=== PATIENT | male | born 1980 | race Caucasian/White ===

== ENCOUNTER 2020-04-23 10:26 | Inpatient (IN) | payer MEDICAID, SELFPAY ==
[~2020-04-23] VITALS: Ht 180.3 cm; Wt 106.6 kg
[~2020-04-23 10:26] MED LIST: ALBU0.0912 INH; AMPH15TA PO; AZIT250T3 PO; BENZ-196 PO; BUS5 PO; DEC1 PO; DESV50TE PO; FERR325E14 PO; LORA-476 PO; QUET100T PO
[2020-04-23] MEDS ORDERED: LORazepam 2 MG/ML VIAL IVP ONE (10:40)
[2020-04-23 10:43] VITALS: BP 135/93
[2020-04-23] MEDS ORDERED: DEXAMETHASONE 10 MG/ML VIAL IVP ONE (14:20)
[2020-04-23 15:17] LABS: BASOPHILS % (AUTO) 0.1 % (0.0-2.0); EOSINOPHILS # (AUTO) 0.1 K/uL (0-0.4); EOSINOPHILS % (AUTO) 0.6 % (0.0-4.0); HEMOGLOBIN 12.6 g/dL (12.0-18.0); LYMPHOCYTES # (AUTO) 0.8 K/uL (2.0-11.5); LYMPHOCYTES % (AUTO) 4.9 % (20.5-51.1); MEAN CORPUSCULAR HEMOGLOBIN 24 pg (27-31); MEAN CORPUSCULAR HGB CONC 32 g/dL (33-37); MEAN CORPUSCULAR VOLUME 73.3 fL (80-94); MONOCYTES # (AUTO) 0.5 K/uL (0.8-1.0); MONOCYTES % (AUTO) 2.9 % (1.7-9.3); NEUTROPHILS # (AUTO) 14.6 K/uL (1.8-7.7); NEUTROPHILS % (AUTO) 91.5 % (42.2-75.2); PLATELET COUNT (AUTO) 385 K/uL (140-450); RED BLOOD CELL COUNT(AUTO) 5.32 MIL/uL (4.20-6.10); RED CELL DISTRIBUTION WIDTH 22.2 % (11.6-13.7)
[2020-04-23] MEDS ORDERED: ALBUTEROL HFA MDI 90 MCG/ACTUATION 8 GM INH PRN (15:25)
[2020-04-23] MEDS ORDERED: LEVOFLOXACIN 500 MG/D5W PREMIX 100 ML IV SCH (15:25)
[2020-04-23] MEDS ORDERED: ZOLPIDEM 5 MG TAB PO PRN (15:25)
[2020-04-23] MEDS ORDERED: COMMUNICATION ORDER MC SCH (15:25)
[2020-04-23] MEDS ORDERED: ONDANSETRON 4 MG/2 ML VIAL IM/IVP PRN (15:25)
[2020-04-23] MEDS ORDERED: DOCUSATE SODIUM 100 MG GELCAP PO PRN (15:25)
[2020-04-23] MEDS ORDERED: POTASSIUM CHLORIDE 10 MEQ TABER PO PRN (15:25)
[2020-04-23 15:35] LABS: ALBUMIN 2.4 g/dL (3.4-5.0); ANION GAP 12.5 (8-16); CARBON DIOXIDE 28.8 mmol/L (21-32); POTASSIUM 4.3 mmol/L (3.5-5.1); TOTAL BILIRUBIN 0.5 mg/dL (0.0-1.0)
[2020-04-23 16:14] LABS: PROTHROMBIN TIME 10.5 secs (10.8-13.4)
[2020-04-23] MEDS ORDERED: remdesivir CLINICAL MONITORING 1 EA MISC MC PRN (16:15)
[2020-04-23] MEDS: NACL 0.9% 1,000 ML IV SCH (16:20)
[2020-04-23 16:43] LABS: FREE T4 (FREE THYROXINE) 1.13 ng/dL (0.76-1.46); MAGNESIUM 2.1 mg/dL (1.8-2.4); THYROID STIMULATING HORMONE 0.7 uIU/mL (0.34-3.74)
[2020-04-23] MEDS: REMDESIVIR (EUA) 100 MG in NACL 0.9% 100 ML IV SCH (17:07)
[2020-04-23 17:20] LABS: APPEARANCE,URINE CLEAR (CLEAR); BILIRUBIN,URINE NEGATIVE (NEGATIVE); BLOOD, URINE NEGATIVE (NEGATIVE); COLOR,URINE YELLOW (YELLOW); LEUKOCYTE ESTERASE ,URINE NEGATIVE (NEGATIVE); NITRITE, URINE NEGATIVE (NEGATIVE); UGLUCOSE NEGATIVE (NEGATIVE)
[2020-04-23] MEDS: HYDROcodone/APAP 7.5/325 MG 1 TAB PO PRN (18:16)
[2020-04-23] MEDS: LEVOFLOXACIN 750 MG/D5W PREMIX 150 ML IV SCH (18:26)
[2020-04-23 18:34] LABS: BARBITURATE, URINE NEGATIVE ng/ml (NEG <=200); BENZODIAZEPINE, URINE POSITIVE ng/mL (NEG <=200); CANNABINOID, URINE POSITIVE ng/mL (NEG <=50); COCAINE, URINE NEGATIVE ng/mL (NEG <=300); OPIATE, URINE NEGATIVE ng/mL (NEG <=2000); PHENCYCLIDINE SCREEN,URINE NEGATIVE ng/mL (NEG <=25)
[2020-04-23] MEDS ORDERED: LORazepam 2 MG/ML VIAL ONE (20:10)
[2020-04-23] MEDS: LORazepam 2 MG/ML VIAL IVP PRN (20:31)
[2020-04-23] MEDS: methylPREDNISolone SS 40 MG/ML VIAL IVP SCH (21:11)
[2020-04-24] MEDS: LORazepam 2 MG/ML VIAL IVP PRN ×5 (04:38→21:41)
[2020-04-24 07:12] LABS: T4 (THYROXINE) 5.9 ug/dL (4.5-12.0)
[2020-04-24] MEDS: NACL 0.9% 1,000 ML IV SCH (08:26)
[2020-04-24 08:34] LABS: BASOPHILS % (AUTO) 0.1 % (0.0-2.0); HEMATOCRIT 36.4 % (36-52); HEMOGLOBIN 11.6 g/dL (12.0-18.0); LYMPHOCYTES # (AUTO) 0.4 K/uL (2.0-11.5); LYMPHOCYTES % (AUTO) 2.6 % (20.5-51.1); MEAN CORPUSCULAR HEMOGLOBIN 24 pg (27-31); MEAN CORPUSCULAR HGB CONC 32 g/dL (33-37); MEAN CORPUSCULAR VOLUME 73.6 fL (80-94); MONOCYTES # (AUTO) 0.5 K/uL (0.8-1.0); MONOCYTES % (AUTO) 3.2 % (1.7-9.3); NEUTROPHILS # (AUTO) 14.5 K/uL (1.8-7.7); NEUTROPHILS % (AUTO) 94.1 % (42.2-75.2); PLATELET COUNT (AUTO) 380 K/uL (140-450); RED BLOOD CELL COUNT(AUTO) 4.94 MIL/uL (4.20-6.10); RED CELL DISTRIBUTION WIDTH 22.1 % (11.6-13.7); WHITE BLOOD COUNT (AUTO) 15.4 K/uL (4.8-10.8)
[2020-04-24] MEDS ORDERED: AZITHROMYCIN 250 MG TAB ONE (08:57)
[2020-04-24 09:06] LABS: ALBUMIN 2.3 g/dL (3.4-5.0); ANION GAP 15.2 (8-16); CARBON DIOXIDE 27.8 mmol/L (21-32); CREATININE 0.9 mg/dL (0.6-1.3); TOTAL BILIRUBIN 0.3 mg/dL (0.0-1.0)
[2020-04-24] MEDS: methylPREDNISolone SS 40 MG/ML VIAL IVP SCH ×2 (09:12→21:39)
[2020-04-24] MEDS: PANTOPRAZOLE 40 MG TABEC PO SCH (09:12)
[2020-04-24] MEDS: ASCORBIC ACID 500 MG TAB PO SCH (09:13)
[2020-04-24] MEDS: AZITHROMYCIN 250 MG TAB PO SCH (09:13)
[2020-04-24] MEDS ORDERED: HYDROcodone/APAP 7.5/325 MG 1 TAB ONE (11:35)
[2020-04-24] MEDS: HYDROcodone/APAP 7.5/325 MG 1 TAB PO PRN (11:37)
[2020-04-24] MEDS: guaiFENesin DM 200/20 MG-10 ML 10 ML UDC PO PRN ×2 (13:08→19:14)
[2020-04-24] MEDS: MORPHINE SULFATE 4 MG/ML SYR IVP PRN ×3 (15:10→23:24)
[2020-04-24] MEDS: REMDESIVIR (EUA) 100 MG in NACL 0.9% 100 ML IV SCH (17:05)
[2020-04-24] MEDS: LEVOFLOXACIN 750 MG/D5W PREMIX 150 ML IV SCH (18:12)
[2020-04-24] MEDS: LOVENOX 1MG/KG Q12H SUBQ SCH (21:00)
[2020-04-24] MEDS: ENOXAPARIN 120 MG/0.8 ML SYR SUBQ SCH (21:40)
[2020-04-25] MEDS: NACL 0.9% 1,000 ML IV SCH ×2 (00:45→17:25)
[2020-04-25] MEDS: LORazepam 2 MG/ML VIAL IVP PRN ×3 (03:45→16:17)
[2020-04-25] MEDS: MORPHINE SULFATE 4 MG/ML SYR IVP PRN ×5 (04:06→22:11)
[2020-04-25 08:00] VITALS: BP 98/62
[2020-04-25] MEDS: LOVENOX 1MG/KG Q12H SUBQ SCH ×2 (09:00→20:30)
[2020-04-25] MEDS: ASCORBIC ACID 500 MG TAB PO SCH (09:03)
[2020-04-25] MEDS: PANTOPRAZOLE 40 MG TABEC PO SCH (09:03)
[2020-04-25] MEDS: AZITHROMYCIN 250 MG TAB PO SCH (09:03)
[2020-04-25] MEDS: methylPREDNISolone SS 40 MG/ML VIAL IVP SCH ×2 (09:04→20:18)
[2020-04-25] MEDS: ENOXAPARIN 120 MG/0.8 ML SYR SUBQ SCH ×2 (09:09→20:29)
[2020-04-25 09:19] LABS: BASOPHILS # (AUTO) 0.1 K/uL (0.00-0.22); BASOPHILS % (AUTO) 0.8 % (0.0-2.0); HEMATOCRIT 39.4 % (36-52); HEMOGLOBIN 12.6 g/dL (12.0-18.0); LYMPHOCYTES # (AUTO) 0.7 K/uL (2.0-11.5); LYMPHOCYTES % (AUTO) 3.6 % (20.5-51.1); MEAN CORPUSCULAR HEMOGLOBIN 24 pg (27-31); MEAN CORPUSCULAR HGB CONC 32 g/dL (33-37); MEAN CORPUSCULAR VOLUME 74.1 fL (80-94); MONOCYTES # (AUTO) 0.6 K/uL (0.8-1.0); MONOCYTES % (AUTO) 3.4 % (1.7-9.3); NEUTROPHILS # (AUTO) 17.3 K/uL (1.8-7.7); NEUTROPHILS % (AUTO) 92.2 % (42.2-75.2); PLATELET COUNT (AUTO) 465 K/uL (140-450); RED BLOOD CELL COUNT(AUTO) 5.31 MIL/uL (4.20-6.10); RED CELL DISTRIBUTION WIDTH 22.5 % (11.6-13.7); WHITE BLOOD COUNT (AUTO) 18.8 K/uL (4.8-10.8)
[2020-04-25 09:48] LABS: ALBUMIN 2.5 g/dL (3.4-5.0); ANION GAP 14.6 (8-16); CARBON DIOXIDE 27.9 mmol/L (21-32); CREATININE 0.9 mg/dL (0.6-1.3); POTASSIUM 4.5 mmol/L (3.5-5.1); TOTAL BILIRUBIN 0.4 mg/dL (0.0-1.0)
[2020-04-25] MEDS: guaiFENesin DM 200/20 MG-10 ML 10 ML UDC PO PRN ×2 (11:46→18:31)
[2020-04-25] MEDS ORDERED: CHLORHEXIDINE GLUCONATE 0.12% 473 ML LIQ MM ONE (12:45)
[2020-04-25 16:00] VITALS: BP 115/67
[2020-04-25] MEDS: REMDESIVIR (EUA) 100 MG in NACL 0.9% 100 ML IV SCH (17:00)
[2020-04-25 20:00] VITALS: BP 114/67
[2020-04-25] MEDS: LEVOFLOXACIN 750 MG/D5W PREMIX 150 ML IV SCH (20:18)
[2020-04-25] MEDS: CHLORHEXIDINE GLUCONATE 0.12% 473 ML LIQ MM SCH (20:18)
[2020-04-25] MEDS ORDERED: CHLORHEXADINE GLUC 2% CLOTH TP SCH (21:00)
[2020-04-25] MEDS ORDERED: cefTRIAXone 2,000 MG VIAL ONE (22:00)
[2020-04-25] MEDS: cefTRIAXone 2,000 MG in DEXTROSE 5% 100 ML IV SCH (22:05)
[2020-04-26] MEDS: LORazepam 2 MG/ML VIAL IVP PRN ×6 (00:17→23:42)
[2020-04-26] MEDS: MORPHINE SULFATE 4 MG/ML SYR IVP PRN ×5 (02:11→21:20)
[2020-04-26] MEDS: guaiFENesin DM 200/20 MG-10 ML 10 ML UDC PO PRN ×3 (02:21→21:00)
[2020-04-26 04:00] VITALS: BP 101/75
[2020-04-26] MEDS: ENOXAPARIN 120 MG/0.8 ML SYR SUBQ SCH ×2 (08:06→19:56)
[2020-04-26] MEDS: LOVENOX 1MG/KG Q12H SUBQ SCH ×2 (08:10→09:00)
[2020-04-26] MEDS: CHLORHEXIDINE GLUCONATE 0.12% 473 ML LIQ MM SCH ×2 (08:11→21:30)
[2020-04-26] MEDS: AZITHROMYCIN 250 MG TAB PO SCH (08:12)
[2020-04-26] MEDS: methylPREDNISolone SS 40 MG/ML VIAL IVP SCH ×2 (08:12→19:53)
[2020-04-26] MEDS: PANTOPRAZOLE 40 MG TABEC PO SCH (08:12)
[2020-04-26] MEDS: ASCORBIC ACID 500 MG TAB PO SCH (08:13)
[2020-04-26 08:29] LABS: ALBUMIN 2.2 g/dL (3.4-5.0); ANION GAP 12.4 (8-16); CARBON DIOXIDE 29.6 mmol/L (21-32); CREATININE 0.9 mg/dL (0.6-1.3); TOTAL BILIRUBIN 0.3 mg/dL (0.0-1.0)
[2020-04-26] MEDS: NACL 0.9% 1,000 ML IV SCH (10:05)
[2020-04-26 12:10] LABS: BASOPHILS % (AUTO) 0.3 % (0.0-2.0); HEMATOCRIT 37.3 % (36-52); HEMOGLOBIN 11.8 g/dL (12.0-18.0); LYMPHOCYTES # (AUTO) 0.6 K/uL (2.0-11.5); LYMPHOCYTES % (AUTO) 3.6 % (20.5-51.1); MEAN CORPUSCULAR HEMOGLOBIN 24 pg (27-31); MEAN CORPUSCULAR HGB CONC 32 g/dL (33-37); MEAN CORPUSCULAR VOLUME 75.5 fL (80-94); MONOCYTES # (AUTO) 0.7 K/uL (0.8-1.0); MONOCYTES % (AUTO) 4.5 % (1.7-9.3); NEUTROPHILS # (AUTO) 14.3 K/uL (1.8-7.7); NEUTROPHILS % (AUTO) 91.6 % (42.2-75.2); PLATELET COUNT (AUTO) 432 K/uL (140-450); RED BLOOD CELL COUNT(AUTO) 4.94 MIL/uL (4.20-6.10); RED CELL DISTRIBUTION WIDTH 21.8 % (11.6-13.7); WHITE BLOOD COUNT (AUTO) 15.6 K/uL (4.8-10.8)
[2020-04-26 16:00] VITALS: BP 103/70
[2020-04-26] MEDS: LEVOFLOXACIN 750 MG/D5W PREMIX 150 ML IV SCH (17:14)
[2020-04-26] MEDS: cefTRIAXone 2,000 MG in DEXTROSE 5% 100 ML IV SCH (19:54)
[2020-04-26 20:00] VITALS: BP 118/71
[2020-04-27] MEDS: MORPHINE SULFATE 4 MG/ML SYR IVP PRN ×5 (01:22→19:59)
[2020-04-27] MEDS: NACL 0.9% 1,000 ML IV SCH ×2 (02:45→20:00)
[2020-04-27] MEDS: guaiFENesin DM 200/20 MG-10 ML 10 ML UDC PO PRN ×4 (02:58→22:39)
[2020-04-27] MEDS: LORazepam 2 MG/ML VIAL IVP PRN ×5 (03:43→21:41)
[2020-04-27 04:00] VITALS: BP 97/62
[2020-04-27 08:00] VITALS: BP 136/74
[2020-04-27] MEDS: ENOXAPARIN 120 MG/0.8 ML SYR SUBQ SCH ×2 (09:31→21:32)
[2020-04-27] MEDS: PANTOPRAZOLE 40 MG TABEC PO SCH (09:33)
[2020-04-27] MEDS: AZITHROMYCIN 250 MG TAB PO SCH (09:33)
[2020-04-27] MEDS: ASCORBIC ACID 500 MG TAB PO SCH (09:33)
[2020-04-27] MEDS: methylPREDNISolone SS 40 MG/ML VIAL IVP SCH ×2 (09:35→21:31)
[2020-04-27] MEDS: CHLORHEXIDINE GLUCONATE 0.12% 473 ML LIQ MM SCH ×2 (09:36→21:41)
[2020-04-27] MEDS: ALBUTEROL HFA MDI 90 MCG/ACTUATION 8 GM INH PRN (13:09)
[2020-04-27] MEDS: CLINDAMYCIN 600 MG in DEXTROSE 5% 50 ML IV SCH ×2 (14:05→21:25)
[2020-04-27 16:00] VITALS: BP 109/75
[2020-04-27 19:57] VITALS: BP 116/70
[2020-04-27] MEDS: cefTRIAXone 2,000 MG in DEXTROSE 5% 100 ML IV SCH (22:29)
[2020-04-28] MEDS: MORPHINE SULFATE 4 MG/ML SYR IVP PRN ×6 (04:00→22:10)
[2020-04-28 04:08] VITALS: BP 103/69
[2020-04-28] MEDS: CLINDAMYCIN 600 MG in DEXTROSE 5% 50 ML IV SCH ×3 (06:08→21:00)
[2020-04-28 08:00] VITALS: BP 117/63
[2020-04-28] MEDS: methylPREDNISolone SS 40 MG/ML VIAL IVP SCH ×2 (08:28→21:00)
[2020-04-28] MEDS: ASCORBIC ACID 500 MG TAB PO SCH (08:29)
[2020-04-28] MEDS: PANTOPRAZOLE 40 MG TABEC PO SCH (08:29)
[2020-04-28] MEDS: ENOXAPARIN 120 MG/0.8 ML SYR SUBQ SCH ×2 (08:30→21:00)
[2020-04-28] MEDS: CHLORHEXIDINE GLUCONATE 0.12% 473 ML LIQ MM SCH ×2 (08:32→21:00)
[2020-04-28] MEDS: LORazepam 2 MG/ML VIAL IVP PRN ×2 (10:20→14:22)
[2020-04-28] MEDS: guaiFENesin DM 200/20 MG-10 ML 10 ML UDC PO PRN (12:34)
[2020-04-28] MEDS: NACL 0.9% 1,000 ML IV SCH (15:36)
[2020-04-28 16:00] VITALS: BP 99/76
[2020-04-28] MEDS: cefTRIAXone 2,000 MG in DEXTROSE 5% 100 ML IV SCH (21:00)
[2020-04-28] MEDS ORDERED: ALBUTEROL HFA MDI 90 MCG/ACTUATION 8 GM INH PRN (21:45)
[2020-04-29] MEDS: MORPHINE SULFATE 4 MG/ML SYR IVP PRN ×5 (02:19→21:29)
[2020-04-29] MEDS: LORazepam 2 MG/ML VIAL IVP PRN ×4 (03:40→23:53)
[2020-04-29 04:00] VITALS: BP_SYST 104; BP_SYST 160; BP_DIAS 65; BP_DIAS 70
[2020-04-29] MEDS: NACL 0.9% 1,000 ML IV SCH ×2 (04:45→21:25)
[2020-04-29] MEDS: CLINDAMYCIN 600 MG in DEXTROSE 5% 50 ML IV SCH ×3 (05:18→20:18)
[2020-04-29 08:00] VITALS: BP 112/76
[2020-04-29 08:23] LABS: BASOPHILS % (AUTO) 0.2 % (0.0-2.0); EOSINOPHILS % (AUTO) 0.3 % (0.0-4.0); HEMATOCRIT 37.7 % (36-52); LYMPHOCYTES # (AUTO) 0.8 K/uL (2.0-11.5); LYMPHOCYTES % (AUTO) 6.3 % (20.5-51.1); MEAN CORPUSCULAR HEMOGLOBIN 24 pg (27-31); MEAN CORPUSCULAR HGB CONC 32 g/dL (33-37); MEAN CORPUSCULAR VOLUME 74.7 fL (80-94); MONOCYTES # (AUTO) 0.8 K/uL (0.8-1.0); MONOCYTES % (AUTO) 5.8 % (1.7-9.3); NEUTROPHILS # (AUTO) 11.7 K/uL (1.8-7.7); NEUTROPHILS % (AUTO) 87.4 % (42.2-75.2); PLATELET COUNT (AUTO) 363 K/uL (140-450); RED BLOOD CELL COUNT(AUTO) 5.04 MIL/uL (4.20-6.10); RED CELL DISTRIBUTION WIDTH 21.5 % (11.6-13.7); WHITE BLOOD COUNT (AUTO) 13.4 K/uL (4.8-10.8)
[2020-04-29] MEDS ORDERED: ASCORBIC ACID 500 MG TAB PO SCH (09:00)
[2020-04-29 09:02] LABS: ALBUMIN 2.3 g/dL (3.4-5.0); CARBON DIOXIDE 28.7 mmol/L (21-32); CREATININE 0.8 mg/dL (0.6-1.3); MAGNESIUM 1.5 mg/dL (1.8-2.4); PHOSPHORUS 3.1 mg/dL (2.5-4.9); TOTAL BILIRUBIN 0.3 mg/dL (0.0-1.0)
[2020-04-29 09:24] LABS: POTASSIUM 3.7 mmol/L (3.5-5.1)
[2020-04-29] MEDS: ASCORBIC ACID 500 MG TAB PO SCH (10:41)
[2020-04-29] MEDS: PANTOPRAZOLE 40 MG TABEC PO SCH (10:42)
[2020-04-29] MEDS: VITAMIN D 400 IU TAB PO SCH (10:42)
[2020-04-29] MEDS: methylPREDNISolone SS 40 MG/ML VIAL IVP SCH ×2 (10:44→20:21)
[2020-04-29] MEDS: ENOXAPARIN 120 MG/0.8 ML SYR SUBQ SCH ×2 (10:52→20:27)
[2020-04-29] MEDS: guaiFENesin DM 200/20 MG-10 ML 10 ML UDC PO PRN ×2 (11:16→22:19)
[2020-04-29] MEDS: CHLORHEXIDINE GLUCONATE 0.12% 473 ML LIQ MM SCH (11:17)
[2020-04-29 16:00] VITALS: BP 136/96
[2020-04-29] MEDS ORDERED: MAG SULF 2000 MG/WATER PREMIX 50 ML IV SCH (16:00)
[2020-04-29 20:00] VITALS: BP 123/87
[2020-04-29] MEDS: cefTRIAXone 2,000 MG in DEXTROSE 5% 100 ML IV SCH (21:35)
[2020-04-30] MEDS: MORPHINE SULFATE 4 MG/ML SYR IVP PRN (01:41)
[2020-04-30] MEDS: CLINDAMYCIN 600 MG in DEXTROSE 5% 50 ML IV SCH ×3 (04:12→20:57)
[2020-04-30] MEDS: LORazepam 2 MG/ML VIAL IVP PRN ×4 (04:33→17:53)
[2020-04-30 06:10] VITALS: BP 131/78
[2020-04-30] MEDS: NACL 0.9% 1,000 ML IV SCH (06:25)
[2020-04-30 08:00] VITALS: BP 126/86
[2020-04-30] MEDS: VITAMIN D 400 IU TAB PO SCH (08:48)
[2020-04-30] MEDS: PANTOPRAZOLE 40 MG TABEC PO SCH (08:48)
[2020-04-30] MEDS: ASCORBIC ACID 500 MG TAB PO SCH (08:48)
[2020-04-30] MEDS: methylPREDNISolone SS 40 MG/ML VIAL IVP SCH ×2 (08:49→20:57)
[2020-04-30] MEDS: ENOXAPARIN 120 MG/0.8 ML SYR SUBQ SCH ×2 (08:51→21:00)
[2020-04-30 09:41] LABS: ALBUMIN 2.7 g/dL (3.4-5.0); ANION GAP 15.4 (8-16); CARBON DIOXIDE 27.5 mmol/L (21-32); CREATININE 0.9 mg/dL (0.6-1.3); MAGNESIUM 2.5 mg/dL (1.8-2.4); POTASSIUM 3.9 mmol/L (3.5-5.1); TOTAL BILIRUBIN 0.4 mg/dL (0.0-1.0)
[2020-04-30 16:00] VITALS: BP 120/78
[2020-04-30 20:00] VITALS: BP 118/75
[2020-04-30] MEDS: HYDROcodone/APAP 7.5/325 MG 1 TAB PO PRN (20:58)
[2020-04-30] MEDS: cefTRIAXone 2,000 MG in DEXTROSE 5% 100 ML IV SCH (21:01)
[2020-05-01] MEDS: LORazepam 2 MG/ML VIAL IVP PRN ×2 (00:07→05:32)
[2020-05-01 04:00] VITALS: BP 99/64
[2020-05-01] MEDS: CLINDAMYCIN 600 MG in DEXTROSE 5% 50 ML IV SCH ×3 (05:12→21:30)
[2020-05-01] MEDS: NACL 0.9% 1,000 ML IV SCH ×2 (06:45→14:04)
[2020-05-01 08:00] VITALS: BP 106/64
[2020-05-01 08:46] LABS: BASOPHILS % (AUTO) 0.3 % (0.0-2.0); EOSINOPHILS % (AUTO) 0.1 % (0.0-4.0); HEMATOCRIT 37.8 % (36-52); HEMOGLOBIN 12.2 g/dL (12.0-18.0); LYMPHOCYTES % (AUTO) 7.3 % (20.5-51.1); MEAN CORPUSCULAR HEMOGLOBIN 24 pg (27-31); MEAN CORPUSCULAR HGB CONC 32 g/dL (33-37); MEAN CORPUSCULAR VOLUME 74.6 fL (80-94); MONOCYTES # (AUTO) 0.8 K/uL (0.8-1.0); MONOCYTES % (AUTO) 5.3 % (1.7-9.3); NEUTROPHILS # (AUTO) 12.5 K/uL (1.8-7.7); PLATELET COUNT (AUTO) 416 K/uL (140-450); RED BLOOD CELL COUNT(AUTO) 5.06 MIL/uL (4.20-6.10); RED CELL DISTRIBUTION WIDTH 21.1 % (11.6-13.7); WHITE BLOOD COUNT (AUTO) 14.4 K/uL (4.8-10.8)
[2020-05-01 08:54] LABS: ALBUMIN 2.6 g/dL (3.4-5.0); ANION GAP 15.2 (8-16); CARBON DIOXIDE 26.6 mmol/L (21-32); MAGNESIUM 1.8 mg/dL (1.8-2.4); PHOSPHORUS 4.1 mg/dL (2.5-4.9); POTASSIUM 3.8 mmol/L (3.5-5.1); TOTAL BILIRUBIN 0.4 mg/dL (0.0-1.0)
[2020-05-01] MEDS: methylPREDNISolone SS 40 MG/ML VIAL IVP SCH ×2 (10:50→21:30)
[2020-05-01] MEDS: VITAMIN D 400 IU TAB PO SCH (10:50)
[2020-05-01] MEDS: ASCORBIC ACID 500 MG TAB PO SCH (10:50)
[2020-05-01] MEDS: PANTOPRAZOLE 40 MG TABEC PO SCH (10:51)
[2020-05-01] MEDS: ENOXAPARIN 120 MG/0.8 ML SYR SUBQ SCH ×2 (10:53→21:32)
[2020-05-01] MEDS ORDERED: LORazepam 2 MG/ML VIAL IVP PRN (11:15)
[2020-05-01] MEDS ORDERED: HYDROcodone/APAP 7.5/325 MG 1 TAB ONE (11:51)
[2020-05-01 16:00] VITALS: BP 103/66
[2020-05-01] MEDS ORDERED: KETOROLAC 30 MG/ML VIAL IM SCH (17:00)
[2020-05-01] MEDS ORDERED: LIDOCAINE MPF 1% 5 ML ONE (17:57)
[2020-05-01] MEDS: ESCITALOPRAM 20 MG TAB PO SCH (18:19)
[2020-05-01] MEDS: HYDROcodone/APAP 7.5/325 MG 1 TAB PO PRN (18:19)
[2020-05-01 20:00] VITALS: BP 139/96
[2020-05-01] MEDS: cefTRIAXone 2,000 MG in DEXTROSE 5% 100 ML IV SCH (21:27)
[2020-05-01] MEDS: LORazepam 2 MG/ML VIAL IM/IVP PRN (21:29)
[2020-05-01] MEDS: HYDROcodone/APAP 10/325 MG 1 TAB TAB PO PRN (23:10)
[2020-05-02] VITALS: BP 110/78
[2020-05-02] MEDS: LORazepam 2 MG/ML VIAL IM/IVP PRN ×4 (03:46→22:57)
[2020-05-02 04:00] VITALS: BP 102/70
[2020-05-02] MEDS: CLINDAMYCIN 600 MG in DEXTROSE 5% 50 ML IV SCH ×3 (05:42→20:26)
[2020-05-02] MEDS: HYDROcodone/APAP 7.5/325 MG 1 TAB PO PRN (05:42)
[2020-05-02 08:00] VITALS: BP 128/89
[2020-05-02 08:44] LABS: BASOPHILS % (AUTO) 0.3 % (0.0-2.0); EOSINOPHILS % (AUTO) 0.1 % (0.0-4.0); LYMPHOCYTES # (AUTO) 0.8 K/uL (2.0-11.5); LYMPHOCYTES % (AUTO) 6.9 % (20.5-51.1); MEAN CORPUSCULAR HEMOGLOBIN 24 pg (27-31); MEAN CORPUSCULAR HGB CONC 32 g/dL (33-37); MEAN CORPUSCULAR VOLUME 75.5 fL (80-94); MONOCYTES # (AUTO) 0.6 K/uL (0.8-1.0); MONOCYTES % (AUTO) 5.2 % (1.7-9.3); NEUTROPHILS # (AUTO) 10.5 K/uL (1.8-7.7); NEUTROPHILS % (AUTO) 87.5 % (42.2-75.2); PLATELET COUNT (AUTO) 384 K/uL (140-450); RED BLOOD CELL COUNT(AUTO) 5.03 MIL/uL (4.20-6.10); RED CELL DISTRIBUTION WIDTH 20.7 % (11.6-13.7)
[2020-05-02 09:29] LABS: ALBUMIN 2.8 g/dL (3.4-5.0); ANION GAP 10.7 (8-16); CARBON DIOXIDE 28.3 mmol/L (21-32); CREATININE 0.9 mg/dL (0.6-1.3); MAGNESIUM 2.4 mg/dL (1.8-2.4); PHOSPHORUS 4.5 mg/dL (2.5-4.9); TOTAL BILIRUBIN 0.3 mg/dL (0.0-1.0)
[2020-05-02] MEDS: methylPREDNISolone SS 40 MG/ML VIAL IVP SCH ×2 (09:46→20:25)
[2020-05-02] MEDS: PANTOPRAZOLE 40 MG TABEC PO SCH (09:47)
[2020-05-02] MEDS: VITAMIN D 400 IU TAB PO SCH (09:47)
[2020-05-02] MEDS: ASCORBIC ACID 500 MG TAB PO SCH (09:47)
[2020-05-02] MEDS: ENOXAPARIN 120 MG/0.8 ML SYR SUBQ SCH ×2 (09:58→20:29)
[2020-05-02] MEDS: HYDROcodone/APAP 10/325 MG 1 TAB TAB PO PRN ×2 (11:57→18:21)
[2020-05-02 12:00] VITALS: BP 128/89
[2020-05-02] MEDS: NACL 0.9% 1,000 ML IV SCH (15:12)
[2020-05-02] MEDS: ESCITALOPRAM 20 MG TAB PO SCH (16:16)
[2020-05-02 20:00] VITALS: BP 121/80
[2020-05-02] MEDS: busPIRone 5 MG TAB PO SCH (20:24)
[2020-05-02] MEDS: guaiFENesin DM 200/20 MG-10 ML 10 ML UDC PO PRN (20:25)
[2020-05-02] MEDS: cefTRIAXone 2,000 MG in DEXTROSE 5% 100 ML IV SCH (20:26)
[2020-05-03] MEDS: HYDROcodone/APAP 10/325 MG 1 TAB TAB PO PRN ×3 (02:28→18:29)
[2020-05-03 04:00] VITALS: BP 111/93
[2020-05-03] MEDS: CLINDAMYCIN 600 MG in DEXTROSE 5% 50 ML IV SCH ×3 (04:35→21:25)
[2020-05-03] MEDS: NACL 0.9% 1,000 ML IV SCH ×2 (04:35→21:43)
[2020-05-03] MEDS: LORazepam 2 MG/ML VIAL IM/IVP PRN ×4 (04:43→23:20)
[2020-05-03 08:00] VITALS: BP 125/74
[2020-05-03] MEDS: busPIRone 5 MG TAB PO SCH ×2 (09:04→21:25)
[2020-05-03] MEDS: ENOXAPARIN 120 MG/0.8 ML SYR SUBQ SCH ×2 (09:04→21:30)
[2020-05-03] MEDS: PANTOPRAZOLE 40 MG TABEC PO SCH (09:04)
[2020-05-03] MEDS: ASCORBIC ACID 500 MG TAB PO SCH (09:05)
[2020-05-03] MEDS: VITAMIN D 400 IU TAB PO SCH (09:06)
[2020-05-03] MEDS: methylPREDNISolone SS 40 MG/ML VIAL IVP SCH ×2 (09:06→21:25)
[2020-05-03 10:08] LABS: BASOPHILS % (AUTO) 0.2 % (0.0-2.0); EOSINOPHILS % (AUTO) 0.1 % (0.0-4.0); HEMATOCRIT 35.1 % (36-52); HEMOGLOBIN 11.2 g/dL (12.0-18.0); LYMPHOCYTES # (AUTO) 0.9 K/uL (2.0-11.5); LYMPHOCYTES % (AUTO) 7.9 % (20.5-51.1); MEAN CORPUSCULAR HEMOGLOBIN 24 pg (27-31); MEAN CORPUSCULAR HGB CONC 32 g/dL (33-37); MEAN CORPUSCULAR VOLUME 75.2 fL (80-94); MONOCYTES # (AUTO) 0.7 K/uL (0.8-1.0); MONOCYTES % (AUTO) 5.5 % (1.7-9.3); NEUTROPHILS # (AUTO) 10.3 K/uL (1.8-7.7); NEUTROPHILS % (AUTO) 86.3 % (42.2-75.2); PLATELET COUNT (AUTO) 373 K/uL (140-450); RED BLOOD CELL COUNT(AUTO) 4.68 MIL/uL (4.20-6.10); RED CELL DISTRIBUTION WIDTH 20.6 % (11.6-13.7)
[2020-05-03 10:12] LABS: ALBUMIN 2.5 g/dL (3.4-5.0); ANION GAP 10.5 (8-16); CARBON DIOXIDE 29.4 mmol/L (21-32); CREATININE 0.8 mg/dL (0.6-1.3); MAGNESIUM 1.7 mg/dL (1.8-2.4); PHOSPHORUS 3.6 mg/dL (2.5-4.9); POTASSIUM 3.9 mmol/L (3.5-5.1); TOTAL BILIRUBIN 0.2 mg/dL (0.0-1.0)
[2020-05-03] MEDS: KETOROLAC 30 MG/ML VIAL IVP PRN (12:47)
[2020-05-03] MEDS: guaiFENesin DM 200/20 MG-10 ML 10 ML UDC PO PRN (13:33)
[2020-05-03] MEDS: ESCITALOPRAM 20 MG TAB PO SCH (17:20)
[2020-05-03] MEDS: ALBUTEROL HFA MDI 90 MCG/ACTUATION 8 GM INH PRN (17:51)
[2020-05-03 20:00] VITALS: BP 118/79
[2020-05-03] MEDS: QUEtiapine FUMARATE 25 MG TAB PO SCH (21:25)
[2020-05-04] MEDS: HYDROcodone/APAP 10/325 MG 1 TAB TAB PO PRN ×4 (02:53→23:43)
[2020-05-04 04:00] VITALS: BP 102/69
[2020-05-04] MEDS: LORazepam 2 MG/ML VIAL IM/IVP PRN ×4 (05:52→21:20)
[2020-05-04 08:00] VITALS: BP 112/67
[2020-05-04] MEDS: ENOXAPARIN 120 MG/0.8 ML SYR SUBQ SCH ×2 (09:32→21:18)
[2020-05-04] MEDS: ASCORBIC ACID 500 MG TAB PO SCH (09:34)
[2020-05-04] MEDS: VITAMIN D 400 IU TAB PO SCH (09:35)
[2020-05-04] MEDS: PANTOPRAZOLE 40 MG TABEC PO SCH (09:37)
[2020-05-04] MEDS: QUEtiapine FUMARATE 25 MG TAB PO SCH ×2 (09:37→21:15)
[2020-05-04] MEDS: methylPREDNISolone SS 40 MG/ML VIAL IVP SCH ×2 (09:38→21:16)
[2020-05-04] MEDS: busPIRone 5 MG TAB PO SCH ×2 (09:38→21:13)
[2020-05-04] MEDS: guaiFENesin DM 200/20 MG-10 ML 10 ML UDC PO PRN ×3 (11:11→23:43)
[2020-05-04 16:00] VITALS: BP 115/82
[2020-05-04] MEDS: ESCITALOPRAM 20 MG TAB PO SCH (16:28)
[2020-05-04] MEDS: NACL 0.9% 1,000 ML IV SCH (17:29)
[2020-05-04 20:00] VITALS: BP 128/85
[2020-05-05] MEDS: LORazepam 2 MG/ML VIAL IM/IVP PRN ×6 (02:10→22:35)
[2020-05-05] MEDS: KETOROLAC 30 MG/ML VIAL IVP PRN ×3 (03:53→22:35)
[2020-05-05] MEDS: guaiFENesin DM 200/20 MG-10 ML 10 ML UDC PO PRN ×2 (05:41→12:18)
[2020-05-05] MEDS: HYDROcodone/APAP 10/325 MG 1 TAB TAB PO PRN ×3 (06:12→18:20)
[2020-05-05 08:00] VITALS: BP 125/90
[2020-05-05 09:47] LABS: BASOPHILS % (AUTO) 0.2 % (0.0-2.0); EOSINOPHILS % (AUTO) 0.4 % (0.0-4.0); HEMATOCRIT 33.3 % (36-52); HEMOGLOBIN 10.8 g/dL (12.0-18.0); LYMPHOCYTES # (AUTO) 1.1 K/uL (2.0-11.5); LYMPHOCYTES % (AUTO) 11.5 % (20.5-51.1); MEAN CORPUSCULAR HEMOGLOBIN 24 pg (27-31); MEAN CORPUSCULAR HGB CONC 32 g/dL (33-37); MEAN CORPUSCULAR VOLUME 75.3 fL (80-94); MONOCYTES # (AUTO) 0.4 K/uL (0.8-1.0); MONOCYTES % (AUTO) 4.4 % (1.7-9.3); NEUTROPHILS # (AUTO) 8.3 K/uL (1.8-7.7); NEUTROPHILS % (AUTO) 83.5 % (42.2-75.2); PLATELET COUNT (AUTO) 367 K/uL (140-450); RED BLOOD CELL COUNT(AUTO) 4.43 MIL/uL (4.20-6.10); WHITE BLOOD COUNT (AUTO) 9.9 K/uL (4.8-10.8)
[2020-05-05] MEDS: methylPREDNISolone SS 40 MG/ML VIAL IVP SCH ×2 (10:11→21:59)
[2020-05-05] MEDS: QUEtiapine FUMARATE 25 MG TAB PO SCH ×2 (10:11→21:59)
[2020-05-05] MEDS: ASCORBIC ACID 500 MG TAB PO SCH (10:11)
[2020-05-05] MEDS: PANTOPRAZOLE 40 MG TABEC PO SCH (10:11)
[2020-05-05] MEDS: busPIRone 5 MG TAB PO SCH ×2 (10:12→21:59)
[2020-05-05] MEDS: ENOXAPARIN 120 MG/0.8 ML SYR SUBQ SCH ×2 (10:14→22:01)
[2020-05-05] MEDS: NACL 0.9% 1,000 ML IV SCH ×2 (10:45→16:50)
[2020-05-05 16:00] VITALS: BP 120/60
[2020-05-05] MEDS: ESCITALOPRAM 20 MG TAB PO SCH (16:56)
[2020-05-05 18:06] LABS: ALBUMIN 2.7 g/dL (3.4-5.0); ANION GAP 14.9 (8-16); CARBON DIOXIDE 25.9 mmol/L (21-32); CREATININE 0.8 mg/dL (0.6-1.3); MAGNESIUM 2.3 mg/dL (1.8-2.4); POTASSIUM 3.8 mmol/L (3.5-5.1); TOTAL BILIRUBIN 0.2 mg/dL (0.0-1.0)
[2020-05-05 20:00] VITALS: BP 134/93
[2020-05-06] MEDS: HYDROcodone/APAP 10/325 MG 1 TAB TAB PO PRN ×3 (00:27→15:18)
[2020-05-06] MEDS: LORazepam 2 MG/ML VIAL IM/IVP PRN ×6 (02:55→23:28)
[2020-05-06] MEDS: MORPHINE SULFATE 2 MG/ML SYR IVP PRN ×3 (06:09→18:28)
[2020-05-06 08:00] VITALS: BP 110/71
[2020-05-06 08:54] LABS: BASOPHILS % (AUTO) 0.1 % (0.0-2.0); EOSINOPHILS % (AUTO) 0.2 % (0.0-4.0); HEMOGLOBIN 10.8 g/dL (12.0-18.0); LYMPHOCYTES # (AUTO) 0.9 K/uL (2.0-11.5); LYMPHOCYTES % (AUTO) 6.3 % (20.5-51.1); MEAN CORPUSCULAR HEMOGLOBIN 24 pg (27-31); MEAN CORPUSCULAR HGB CONC 32 g/dL (33-37); MEAN CORPUSCULAR VOLUME 76.3 fL (80-94); MONOCYTES # (AUTO) 0.5 K/uL (0.8-1.0); MONOCYTES % (AUTO) 3.5 % (1.7-9.3); NEUTROPHILS # (AUTO) 12.6 K/uL (1.8-7.7); NEUTROPHILS % (AUTO) 89.9 % (42.2-75.2); PLATELET COUNT (AUTO) 400 K/uL (140-450); RED BLOOD CELL COUNT(AUTO) 4.46 MIL/uL (4.20-6.10); RED CELL DISTRIBUTION WIDTH 20.9 % (11.6-13.7)
[2020-05-06 08:57] LABS: ANION GAP 10.9 (8-16); CARBON DIOXIDE 29.4 mmol/L (21-32); CREATININE 0.8 mg/dL (0.6-1.3); POTASSIUM 4.3 mmol/L (3.5-5.1)
[2020-05-06] MEDS: QUEtiapine FUMARATE 25 MG TAB PO SCH ×2 (09:15→21:17)
[2020-05-06] MEDS: ASCORBIC ACID 500 MG TAB PO SCH (09:15)
[2020-05-06] MEDS: busPIRone 5 MG TAB PO SCH ×2 (09:15→21:16)
[2020-05-06] MEDS: PANTOPRAZOLE 40 MG TABEC PO SCH (09:15)
[2020-05-06] MEDS: guaiFENesin DM 200/20 MG-10 ML 10 ML UDC PO PRN ×3 (09:15→21:19)
[2020-05-06] MEDS: ENOXAPARIN 120 MG/0.8 ML SYR SUBQ SCH ×2 (09:16→21:14)
[2020-05-06] MEDS: methylPREDNISolone SS 40 MG/ML VIAL IVP SCH ×2 (09:16→21:16)
[2020-05-06] MEDS: NACL 0.9% 1,000 ML IV SCH (09:18)
[2020-05-06] MEDS: ALBUTEROL HFA MDI 90 MCG/ACTUATION 8 GM INH PRN (11:18)
[2020-05-06 16:00] VITALS: BP 122/82
[2020-05-06] MEDS: ESCITALOPRAM 20 MG TAB PO SCH (16:22)
[2020-05-06] MEDS: ACETAMINOPHEN 325 MG TAB PO PRN (16:22)
[2020-05-06 20:00] VITALS: BP 128/93
[2020-05-06] MEDS: carisoprodoL 350 MG TAB PO SCH (21:18)
[2020-05-07] MEDS: MORPHINE SULFATE 2 MG/ML SYR IVP PRN ×4 (00:40→20:10)
[2020-05-07] MEDS: guaiFENesin DM 200/20 MG-10 ML 10 ML UDC PO PRN ×4 (03:55→23:01)
[2020-05-07] MEDS: LORazepam 2 MG/ML VIAL IM/IVP PRN ×5 (03:55→23:02)
[2020-05-07] MEDS: HYDROcodone/APAP 10/325 MG 1 TAB TAB PO PRN ×4 (03:55→23:01)
[2020-05-07 04:00] VITALS: BP 130/96
[2020-05-07 08:08] LABS: BASOPHILS # (AUTO) 0.1 K/uL (0.00-0.22); BASOPHILS % (AUTO) 0.4 % (0.0-2.0); EOSINOPHILS # (AUTO) 0.1 K/uL (0-0.4); EOSINOPHILS % (AUTO) 0.5 % (0.0-4.0); HEMOGLOBIN 11.1 g/dL (12.0-18.0); LYMPHOCYTES % (AUTO) 5.6 % (20.5-51.1); MEAN CORPUSCULAR HEMOGLOBIN 24 pg (27-31); MEAN CORPUSCULAR HGB CONC 32 g/dL (33-37); MEAN CORPUSCULAR VOLUME 76.1 fL (80-94); MONOCYTES # (AUTO) 0.7 K/uL (0.8-1.0); MONOCYTES % (AUTO) 3.9 % (1.7-9.3); NEUTROPHILS # (AUTO) 15.4 K/uL (1.8-7.7); NEUTROPHILS % (AUTO) 89.6 % (42.2-75.2); PLATELET COUNT (AUTO) 447 K/uL (140-450); RED CELL DISTRIBUTION WIDTH 21.6 % (11.6-13.7); WHITE BLOOD COUNT (AUTO) 17.2 K/uL (4.8-10.8)
[2020-05-07 08:13] LABS: ANION GAP 11.6 (8-16); CARBON DIOXIDE 29.6 mmol/L (21-32); CREATININE 0.8 mg/dL (0.6-1.3); POTASSIUM 4.2 mmol/L (3.5-5.1)
[2020-05-07] MEDS ORDERED: carisoprodoL 350 MG TAB PO SCH (09:00)
[2020-05-07] MEDS: PANTOPRAZOLE 40 MG TABEC PO SCH (09:01)
[2020-05-07] MEDS: methylPREDNISolone SS 40 MG/ML VIAL IVP SCH ×2 (09:02→20:09)
[2020-05-07] MEDS: ASCORBIC ACID 500 MG TAB PO SCH (09:03)
[2020-05-07] MEDS: busPIRone 5 MG TAB PO SCH ×2 (09:04→20:10)
[2020-05-07] MEDS: QUEtiapine FUMARATE 25 MG TAB PO SCH ×2 (09:04→20:10)
[2020-05-07] MEDS: ENOXAPARIN 120 MG/0.8 ML SYR SUBQ SCH ×2 (09:06→20:12)
[2020-05-07] MEDS: NACL 0.9% 1,000 ML IV SCH (12:09)
[2020-05-07 16:00] VITALS: BP 131/90
[2020-05-07] MEDS: ESCITALOPRAM 20 MG TAB PO SCH (16:37)
[2020-05-07] MEDS: ACETAMINOPHEN 325 MG TAB PO PRN (18:52)
[2020-05-07 20:00] VITALS: BP 122/80
[2020-05-07] MEDS: carisoprodoL 350 MG TAB PO SCH (20:09)
[2020-05-08] MEDS: MORPHINE SULFATE 2 MG/ML SYR IVP PRN ×4 (02:09→23:06)
[2020-05-08] MEDS: LORazepam 2 MG/ML VIAL IM/IVP PRN ×5 (03:15→21:28)
[2020-05-08] MEDS: guaiFENesin DM 200/20 MG-10 ML 10 ML UDC PO PRN ×3 (03:16→16:50)
[2020-05-08 04:00] VITALS: BP 135/92
[2020-05-08] MEDS: HYDROcodone/APAP 10/325 MG 1 TAB TAB PO PRN ×3 (05:23→17:55)
[2020-05-08] MEDS: NACL 0.9% 1,000 ML IV SCH ×2 (05:25→21:21)
[2020-05-08 08:00] VITALS: BP 126/85
[2020-05-08] MEDS: PANTOPRAZOLE 40 MG TABEC PO SCH (08:24)
[2020-05-08] MEDS: QUEtiapine FUMARATE 25 MG TAB PO SCH ×2 (08:24→21:03)
[2020-05-08] MEDS: ASCORBIC ACID 500 MG TAB PO SCH (08:24)
[2020-05-08] MEDS: busPIRone 5 MG TAB PO SCH ×2 (08:24→21:03)
[2020-05-08] MEDS: ENOXAPARIN 120 MG/0.8 ML SYR SUBQ SCH ×2 (08:30→21:02)
[2020-05-08 08:34] LABS: BASOPHILS # (AUTO) 0.1 K/uL (0.00-0.22); BASOPHILS % (AUTO) 0.8 % (0.0-2.0); EOSINOPHILS # (AUTO) 0.1 K/uL (0-0.4); EOSINOPHILS % (AUTO) 0.5 % (0.0-4.0); HEMATOCRIT 34.9 % (36-52); HEMOGLOBIN 11.1 g/dL (12.0-18.0); LYMPHOCYTES # (AUTO) 1.4 K/uL (2.0-11.5); LYMPHOCYTES % (AUTO) 11.1 % (20.5-51.1); MEAN CORPUSCULAR HEMOGLOBIN 25 pg (27-31); MEAN CORPUSCULAR HGB CONC 32 g/dL (33-37); MONOCYTES # (AUTO) 0.6 K/uL (0.8-1.0); MONOCYTES % (AUTO) 4.7 % (1.7-9.3); NEUTROPHILS # (AUTO) 10.4 K/uL (1.8-7.7); NEUTROPHILS % (AUTO) 82.9 % (42.2-75.2); PLATELET COUNT (AUTO) 385 K/uL (140-450); RED BLOOD CELL COUNT(AUTO) 4.53 MIL/uL (4.20-6.10); RED CELL DISTRIBUTION WIDTH 21.7 % (11.6-13.7); WHITE BLOOD COUNT (AUTO) 12.5 K/uL (4.8-10.8)
[2020-05-08 10:11] LABS: ANION GAP 11.3 (8-16); CARBON DIOXIDE 28.7 mmol/L (21-32); CREATININE 0.8 mg/dL (0.6-1.3)
[2020-05-08] MEDS: methylPREDNISolone SS 40 MG/ML VIAL IVP SCH ×2 (10:41→21:03)
[2020-05-08 16:00] VITALS: BP 129/90
[2020-05-08] MEDS: ESCITALOPRAM 20 MG TAB PO SCH (16:42)
[2020-05-08 20:00] VITALS: BP 134/98
[2020-05-08] MEDS: carisoprodoL 350 MG TAB PO SCH (21:03)
[2020-05-09] MEDS: LORazepam 2 MG/ML VIAL IM/IVP PRN ×4 (02:12→20:16)
[2020-05-09] MEDS: guaiFENesin DM 200/20 MG-10 ML 10 ML UDC PO PRN ×2 (02:13→20:19)
[2020-05-09] MEDS: HYDROcodone/APAP 10/325 MG 1 TAB TAB PO PRN ×3 (02:13→20:17)
[2020-05-09] MEDS: MORPHINE SULFATE 2 MG/ML SYR IVP PRN ×3 (05:27→16:56)
[2020-05-09 08:44] LABS: ANION GAP 10.6 (8-16); CARBON DIOXIDE 28.5 mmol/L (21-32); CREATININE 0.7 mg/dL (0.6-1.3); POTASSIUM 4.1 mmol/L (3.5-5.1)
[2020-05-09 09:03] LABS: BASOPHILS % (AUTO) 0.4 % (0.0-2.0); EOSINOPHILS % (AUTO) 0.2 % (0.0-4.0); HEMATOCRIT 34.3 % (36-52); HEMOGLOBIN 10.9 g/dL (12.0-18.0); LYMPHOCYTES # (AUTO) 1.1 K/uL (2.0-11.5); LYMPHOCYTES % (AUTO) 8.9 % (20.5-51.1); MEAN CORPUSCULAR HEMOGLOBIN 25 pg (27-31); MEAN CORPUSCULAR HGB CONC 32 g/dL (33-37); MEAN CORPUSCULAR VOLUME 77.2 fL (80-94); MONOCYTES # (AUTO) 0.6 K/uL (0.8-1.0); MONOCYTES % (AUTO) 4.5 % (1.7-9.3); NEUTROPHILS # (AUTO) 10.7 K/uL (1.8-7.7); PLATELET COUNT (AUTO) 397 K/uL (140-450); RED BLOOD CELL COUNT(AUTO) 4.44 MIL/uL (4.20-6.10); RED CELL DISTRIBUTION WIDTH 21.4 % (11.6-13.7); WHITE BLOOD COUNT (AUTO) 12.4 K/uL (4.8-10.8)
[2020-05-09] MEDS: methylPREDNISolone SS 40 MG/ML VIAL IVP SCH ×2 (09:25→20:18)
[2020-05-09] MEDS: ASCORBIC ACID 500 MG TAB PO SCH (09:26)
[2020-05-09] MEDS: PANTOPRAZOLE 40 MG TABEC PO SCH (09:26)
[2020-05-09] MEDS: ENOXAPARIN 120 MG/0.8 ML SYR SUBQ SCH ×2 (09:27→20:32)
[2020-05-09] MEDS: QUEtiapine FUMARATE 25 MG TAB PO SCH ×2 (09:27→20:17)
[2020-05-09] MEDS: busPIRone 5 MG TAB PO SCH ×2 (09:29→20:17)
[2020-05-09] MEDS: ONDANSETRON 4 MG/2 ML VIAL IVP PRN (11:50)
[2020-05-09 15:49] VITALS: BP 139/92
[2020-05-09] MEDS: ESCITALOPRAM 20 MG TAB PO SCH (16:56)
[2020-05-09] MEDS: carisoprodoL 350 MG TAB PO SCH (20:17)
[2020-05-10] MEDS: ONDANSETRON 4 MG/2 ML VIAL IVP PRN ×2 (00:15→06:19)
[2020-05-10] MEDS: MORPHINE SULFATE 2 MG/ML SYR IVP PRN ×4 (00:16→18:37)
[2020-05-10] MEDS: LORazepam 2 MG/ML VIAL IM/IVP PRN ×4 (00:31→22:29)
[2020-05-10] MEDS: HYDROcodone/APAP 10/325 MG 1 TAB TAB PO PRN ×4 (02:52→22:28)
[2020-05-10] MEDS: guaiFENesin DM 200/20 MG-10 ML 10 ML UDC PO PRN ×2 (02:53→16:35)
[2020-05-10 08:00] VITALS: BP 126/76
[2020-05-10] MEDS: NACL 0.9% 1,000 ML IV SCH ×2 (08:35→08:36)
[2020-05-10] MEDS: methylPREDNISolone SS 40 MG/ML VIAL IVP SCH ×2 (08:36→21:01)
[2020-05-10] MEDS: PANTOPRAZOLE 40 MG TABEC PO SCH (08:37)
[2020-05-10] MEDS: busPIRone 5 MG TAB PO SCH (08:37)
[2020-05-10] MEDS: ASCORBIC ACID 500 MG TAB PO SCH (08:37)
[2020-05-10] MEDS: QUEtiapine FUMARATE 25 MG TAB PO SCH ×2 (08:37→21:02)
[2020-05-10 08:47] LABS: BASOPHILS % (AUTO) 0.1 % (0.0-2.0); EOSINOPHILS % (AUTO) 0.1 % (0.0-4.0); HEMATOCRIT 34.1 % (36-52); HEMOGLOBIN 10.8 g/dL (12.0-18.0); LYMPHOCYTES # (AUTO) 1.4 K/uL (2.0-11.5); LYMPHOCYTES % (AUTO) 11.1 % (20.5-51.1); MEAN CORPUSCULAR HEMOGLOBIN 24 pg (27-31); MEAN CORPUSCULAR HGB CONC 32 g/dL (33-37); MEAN CORPUSCULAR VOLUME 77.2 fL (80-94); MONOCYTES # (AUTO) 0.5 K/uL (0.8-1.0); MONOCYTES % (AUTO) 3.8 % (1.7-9.3); NEUTROPHILS # (AUTO) 10.4 K/uL (1.8-7.7); NEUTROPHILS % (AUTO) 84.9 % (42.2-75.2); PLATELET COUNT (AUTO) 357 K/uL (140-450); RED BLOOD CELL COUNT(AUTO) 4.42 MIL/uL (4.20-6.10); RED CELL DISTRIBUTION WIDTH 21.6 % (11.6-13.7); WHITE BLOOD COUNT (AUTO) 12.2 K/uL (4.8-10.8)
[2020-05-10] MEDS: ENOXAPARIN 120 MG/0.8 ML SYR SUBQ SCH ×2 (08:47→21:03)
[2020-05-10 08:48] LABS: ANION GAP 13.9 (8-16); CARBON DIOXIDE 27.2 mmol/L (21-32); CREATININE 0.8 mg/dL (0.6-1.3); POTASSIUM 4.1 mmol/L (3.5-5.1)
[2020-05-10] MEDS: guaiFENesin 600 MG TABER PO SCH ×2 (15:27→21:01)
[2020-05-10 16:00] VITALS: BP 122/94
[2020-05-10] MEDS: ESCITALOPRAM 20 MG TAB PO SCH (16:35)
[2020-05-10] MEDS: carisoprodoL 350 MG TAB PO SCH (21:02)
[2020-05-11] MEDS: MORPHINE SULFATE 2 MG/ML SYR IVP PRN ×3 (00:55→23:05)
[2020-05-11] MEDS: ONDANSETRON 4 MG/2 ML VIAL IVP PRN (00:55)
[2020-05-11] MEDS: LORazepam 2 MG/ML VIAL IM/IVP PRN ×4 (03:40→23:17)
[2020-05-11] MEDS: guaiFENesin DM 200/20 MG-10 ML 10 ML UDC PO PRN (03:41)
[2020-05-11] MEDS: HYDROcodone/APAP 10/325 MG 1 TAB TAB PO PRN ×3 (06:52→20:46)
[2020-05-11] MEDS: NACL 0.9% 1,000 ML IV SCH ×3 (06:59→20:55)
[2020-05-11 08:00] VITALS: BP 114/80
[2020-05-11] MEDS: ASCORBIC ACID 500 MG TAB PO SCH (08:54)
[2020-05-11] MEDS: guaiFENesin 600 MG TABER PO SCH ×2 (08:54→20:43)
[2020-05-11] MEDS: ENOXAPARIN 120 MG/0.8 ML SYR SUBQ SCH ×2 (08:55→20:44)
[2020-05-11] MEDS: QUEtiapine FUMARATE 25 MG TAB PO SCH ×2 (08:55→20:43)
[2020-05-11] MEDS: methylPREDNISolone SS 40 MG/ML VIAL IVP SCH ×2 (08:56→20:42)
[2020-05-11] MEDS: PANTOPRAZOLE 40 MG TABEC PO SCH (08:56)
[2020-05-11 16:00] VITALS: BP 150/91
[2020-05-11] MEDS: ESCITALOPRAM 20 MG TAB PO SCH (16:54)
[2020-05-11 20:00] VITALS: BP 121/82
[2020-05-11] MEDS: carisoprodoL 350 MG TAB PO SCH (20:42)
[2020-05-12] MEDS: HYDROcodone/APAP 10/325 MG 1 TAB TAB PO PRN ×4 (02:55→21:50)
[2020-05-12] MEDS: LORazepam 2 MG/ML VIAL IM/IVP PRN ×5 (03:19→21:48)
[2020-05-12 04:00] VITALS: BP 117/88
[2020-05-12] MEDS: MORPHINE SULFATE 2 MG/ML SYR IVP PRN ×3 (05:13→18:12)
[2020-05-12] MEDS: PANTOPRAZOLE 40 MG TABEC PO SCH (10:49)
[2020-05-12] MEDS: ASCORBIC ACID 500 MG TAB PO SCH (10:49)
[2020-05-12] MEDS: guaiFENesin 600 MG TABER PO SCH ×2 (10:50→21:47)
[2020-05-12] MEDS: QUEtiapine FUMARATE 25 MG TAB PO SCH ×2 (10:51→21:48)
[2020-05-12] MEDS: methylPREDNISolone SS 40 MG/ML VIAL IVP SCH ×2 (10:51→21:47)
[2020-05-12] MEDS: ENOXAPARIN 120 MG/0.8 ML SYR SUBQ SCH ×2 (10:57→21:51)
[2020-05-12] MEDS: NACL 0.9% 1,000 ML IV SCH (11:08)
[2020-05-12 16:00] VITALS: BP 121/76
[2020-05-12] MEDS: ESCITALOPRAM 20 MG TAB PO SCH (17:28)
[2020-05-12 20:00] VITALS: BP 124/85
[2020-05-12] MEDS: carisoprodoL 350 MG TAB PO SCH (21:47)
[2020-05-13] MEDS: MORPHINE SULFATE 2 MG/ML SYR IVP PRN ×3 (01:57→15:41)
[2020-05-13] MEDS: LORazepam 2 MG/ML VIAL IM/IVP PRN ×5 (02:06→20:10)
[2020-05-13] MEDS: HYDROcodone/APAP 10/325 MG 1 TAB TAB PO PRN ×4 (03:52→23:00)
[2020-05-13 04:00] VITALS: BP 135/83
[2020-05-13] MEDS: NACL 0.9% 1,000 ML IV SCH (04:01)
[2020-05-13] MEDS: methylPREDNISolone SS 40 MG/ML VIAL IVP SCH ×2 (09:00→20:22)
[2020-05-13] MEDS: ASCORBIC ACID 500 MG TAB PO SCH (09:08)
[2020-05-13] MEDS: guaiFENesin 600 MG TABER PO SCH ×2 (09:08→20:23)
[2020-05-13] MEDS: PANTOPRAZOLE 40 MG TABEC PO SCH (09:08)
[2020-05-13] MEDS: QUEtiapine FUMARATE 25 MG TAB PO SCH ×2 (09:08→20:23)
[2020-05-13] MEDS: ENOXAPARIN 120 MG/0.8 ML SYR SUBQ SCH ×2 (09:09→20:23)
[2020-05-13] MEDS ORDERED: ACET-5629 PO (10:24)
[2020-05-13] MEDS ORDERED: PRED10TA5 PO (10:26)
[2020-05-13] MEDS ORDERED: HEPA500056 SUBQ (10:27)
[2020-05-13 16:00] VITALS: BP 118/74
[2020-05-13] MEDS: ESCITALOPRAM 20 MG TAB PO SCH (17:50)
[2020-05-13 20:00] VITALS: BP 107/77
[2020-05-13] MEDS: carisoprodoL 350 MG TAB PO SCH (20:23)
[2020-05-14] MEDS: LORazepam 2 MG/ML VIAL IM/IVP PRN ×5 (00:25→17:25)
[2020-05-14 08:00] VITALS: BP 129/87
[2020-05-14] MEDS: ENOXAPARIN 120 MG/0.8 ML SYR SUBQ SCH (09:00)
[2020-05-14] MEDS: ASCORBIC ACID 500 MG TAB PO SCH (09:21)
[2020-05-14] MEDS: guaiFENesin 600 MG TABER PO SCH (09:21)
[2020-05-14] MEDS: PANTOPRAZOLE 40 MG TABEC PO SCH (09:22)
[2020-05-14] MEDS: QUEtiapine FUMARATE 25 MG TAB PO SCH (09:22)
[2020-05-14] MEDS: methylPREDNISolone SS 40 MG/ML VIAL IVP SCH (09:23)
[2020-05-14] MEDS: NACL 0.9% 1,000 ML IV SCH (11:25)
[2020-05-14] MEDS ORDERED: PNEUMOCOCCAL VACCINE 23 MCG/0.5 ML VIAL IMVAC SCH (12:10)
[2020-05-14] MEDS ORDERED: FLU VACCINE QS2020-21 0.5 ML SYR IMVAC PRN (12:10)
[2020-05-14] MEDS: MORPHINE SULFATE 2 MG/ML SYR IVP PRN ×2 (12:22→17:25)
[2020-05-14] MEDS: HYDROcodone/APAP 10/325 MG 1 TAB TAB PO PRN (15:30)
[2020-05-14] MEDS ORDERED: MORPHINE SULFATE 2 MG/ML SYR IVP PRN (17:15)
[2020-05-14] MEDS: ESCITALOPRAM 20 MG TAB PO SCH (17:23)
== END 2020-05-14 17:45 | DRG 720 ==
LOC: MED 10:26 → MTU 15:17
PROVIDERS: ADMIT Family Medicine; ATTEND Family Medicine
PROC: 0RSWXZZ Reposition Right Finger Phalangeal Joint, External Approach (ICD-10-PCS; 2020-04-23)
PROC: 30233K1 Transfusion of Nonautologous Frozen Plasma into Peripheral Vein, Percutaneous Approach (ICD-10-PCS; 2020-04-24)
PROC: XW033E5 Introduction of Remdesivir Anti-infective into Peripheral Vein, Percutaneous Approach, New Technology Group 5 (ICD-10-PCS; principal; 2020-04-25)
DX: A41.9 Sepsis, unspecified organism (principal); U07.1 COVID-19; J12.82 Pneumonia due to coronavirus disease 2019; J96.21 Acute and chronic respiratory failure with hypoxia; E43 Unspecified severe protein-calorie malnutrition; J45.901 Unspecified asthma with (acute) exacerbation; F41.9 Anxiety disorder, unspecified; F90.9 Attention-deficit hyperactivity disorder, unspecified type; F12.10 Cannabis abuse, uncomplicated; Z68.32 Body mass index [BMI] 32.0-32.9, adult; K12.2 Cellulitis and abscess of mouth; E78.5 Hyperlipidemia, unspecified; L03.119 Cellulitis of unspecified part of limb; F32.9 Major depressive disorder, single episode, unspecified; F15.10 Other stimulant abuse, uncomplicated; R65.20 Severe sepsis without septic shock; F41.0 Panic disorder [episodic paroxysmal anxiety]; L03.115 Cellulitis of right lower limb; Z88.5 Allergy status to narcotic agent; Z88.1 Allergy status to other antibiotic agents; Z71.51 Drug abuse counseling and surveillance of drug abuser; G92 Toxic encephalopathy; E66.9 Obesity, unspecified; D68.59 Other primary thrombophilia; E87.1 Hypo-osmolality and hyponatremia; E83.42 Hypomagnesemia; S63.286A Dislocation of proximal interphalangeal joint of right little finger, initial encounter; W18.39XA Other fall on same level, initial encounter; Y93.89 Activity, other specified; Y92.89 Other specified places as the place of occurrence of the external cause; Y99.8 Other external cause status
CPT/HCPCS: 36415; 36430; 71045; 73120; 73140; 73502; 76881; 80048; 80053; 80305; 81003; 82150; 82550; 83036; 83605; 83615; 83690; 83735; 83880; 84100; 84436; 84439; 84443; 84479; 84484; 85025; 85379; 85610; 85651; 85730; 86140; 86900; 86901; 87081; 90732; 93005; 94664; 96374; 96375; 97110; 97112; 97116; 97161-GP; 97530; 99291; J0696; J1100; J1644; J1650; J1885; J1956; J2001; J2060; J2270; J2405; J2920; J3475; J3490; J7030; J7060; P9017; U0003